=== PATIENT | female | born 1960 | race Caucasian/White ===

== ENCOUNTER 2018-12-22 17:45 | Emergency (ER) | payer OTHER ==
[~2018-12-22] VITALS: Ht 162.6 cm; Wt 70.3 kg
--- NOTE | 2018-12-22 17:50 | NUR ---
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 EDP NOTIFIED OF PT ARRIVAL.
[2018-12-22 18:08] VITALS: BP 134/90
[2018-12-22] MEDS ORDERED: TORADOL ONE (18:14)
[2018-12-22] MEDS ORDERED: TORADOL IM STA (18:15)
[2018-12-22] MEDS ORDERED: DUONEB 0.5 MG-3 MG/3 ML SOLN IH STA (18:15)
[2018-12-22] MEDS ORDERED: DECADRON IH STA (18:15)
--- NOTE | 2018-12-22 18:19 | ER.PDOC ---
General Chief Complaint: Flank Pain Stated Complaint: LEFT SIDE ABD PAIN Time seen by MD: 18:17 Source: patient Exam Limitations: no limitations History of Present Illness Initial Comments Left flank pain Timing/Duration: 4-6 hours Severity/Quality: moderate Radiation: no radiation Associated Symptoms: denies symptoms Exacerbated by: nothing Relieved By: nothing Allergies: Coded Allergies: hydrochlorothiazide (Verified Allergy, Unknown, Swelling, 12/22/18) SWELLING OF THROAT meperidine (Verified Allergy, Unknown, Swelling, 12/22/18) SWELLING OF THROAT moexipril (Verified Allergy, Unknown, Swelling, 12/22/18) SWELLING OF THROAT Vital Signs First Vital Signs Date Time Temp Pulse Resp B/P (MAP) Pulse Ox O2 Delivery O2 Flow Rate FiO2 12/22/18 18:05 97.8 92 21 89 Room Air 97.8 12/22/18 18:08 134/90 (105) Last Vital Signs Date Time Temp Pulse Resp B/P (MAP) Pulse Ox O2 Delivery O2 Flow Rate FiO2 12/22/18 18:08 97.8 92 21 134/90 (105) 89 Room Air 97.8 Past Medical History Medical History: COPD, hypertension Surgical History: knee Social History Smoking: greater than 1 pack/day Alcohol Use: none Drug Use: none Constitutional: no symptoms reported EENTM: no symptoms reported Respiratory: cough Cardiovascular: no symptoms reported Gastrointestinal: no symptoms reported Genitourinary: see HPI All Other Systems: Reviewed and Negative Physical Exam General Appearance: No Apparent Distress, WD/WN Neck: Non-Tender, Full Range of Motion, Supple, Normal Inspection Respiratory: chest non-tender, lungs clear, no respiratory distress, no accessory muscle use, decreased breath sounds Cardiovascular: Normal Peripheral Pulses, Regular Rate, Rhythm, No Edema, No Gallop, No JVD, No Murmur Gastrointestinal: Normal Bowel Sounds, No Organomegaly, No Pulsatile Mass, Tenderness (LLQ) Back: Normal Inspection, No CVA Tenderness, No Vertebral Tenderness Extremities: Normal Range of Motion, Non-Tender, Normal Inspection, No Pedal Edema, No Calf Tenderness, Normal Capillary Refill, Pelvis Stable 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 (12/22/18 18:15) Urinalysis (12/22/18 18:15) Ct Abd/Pelvis Wo Iv Contrast (12/22/18 18:15) Xr Chest 1v (12/22/18 18:15) Troponin I (12/22/18 18:15) Ekg-Routine (12/22/18 18:15) Ketorolac Tromethamine (Toradol) (12/22/18 18:15) Ipratropium/Albuterol Sulfate (Duoneb 0. (12/22/18 18:15) Dexamethasone Sod Phosphate (Decadron) (12/22/18 18:15) Vital Signs Date Time Temp Pulse Resp B/P (MAP) Pulse Ox O2 Delivery O2 Flow Rate FiO2 12/22/18 18:08 97.8 92 21 134/90 (105) 89 Room Air 97.8 12/22/18 18:05 97.8 92 21 97.8 12/22/18 18:05 97.8 92 21 89 Room Air 97.[address] Chest: . Consolidated right infrahilar density measuring 2.3 x 4.1 cm likely representing bronchogenic carcinoma or metastatic disease. The apparent mass encases the right bronchus intermedius. If diagnosis cannot be obtained via bronchoscopy, a PET/CT is suggested. 2. Patchy obstructive atelectasis or pneumonia noted in the right middle lobe and right lower lobe. Course Sepsis Screening Results: Posi: POSITIVE SEPSIS RISK Vitals & review Data Vital Sign - Last 24 Hours 12/22/18 12/22/18 12/22/18 18:05 18:05 18:08 Temp 97.8 97.8 97.8 97.8 97.8 97.8 Pulse 92 92 92 Resp 21 21 21 B/P (MAP) 134/90 (105) Pulse Ox 89 89 O2 Delivery Room Air Room Air Sepsis Infection Criteria Pres: None O2 Sat by Pulse Oximetry: 89 Departure Time of Disposition: 22:02 Disposition: 02 XFER SHT-TRM HOSP Impression: Primary Impression: Respiratory failure with hypoxia Additional Impressions: Mass of right lung Pneumonia Condition: Stable Referrals: WALTER CONCEPCION MD (PCP) PRIMARY CARE PROVIDER Comments Transfer to [facility] ED for Dr. Bui Duration or Time Spent with Pa: 2 hours Problem Qualifiers Primary Impression: Respiratory failure with hypoxia Chronicity: acute Qualified Codes: J96.01 - Acute respiratory failure with hypoxia Additional Impressions: Pneumonia Pneumonia type: due to unspecified organism Laterality: right Lung location : unspecified part of lung Qualified Codes: J18.9 - Pneumonia, unspecified organism CARIDAD,MICKEY Salvador MD Dec 22, 2018 18:19
--- NOTE | 2018-12-22 18:27 | PCM.EKG ---
[facility] Test Date: 2018-12-22 Test Time: 18:25:15 Pat Name: DA CORRAL Department: Patient ID: [facility]-[id number] Room: Gender: F Director Telemetry: : 1960 Requested By: MICKEY MCLEAN Order Number: [id number] Reading MD: Mickey MCLEAN Measurements Intervals [place] Rate: 93 P: 70 MD: 170 QRS: 59 QRSD: 94 T: 84 QT: 390 QTc: 484 Interpretive Statements Normal sinus rhythm Normal ECG No previous ECG available for comparison Electronically Signed On 12-23-2018 1:53:48 CDT by Mickey MCLEAN Please click the below link to view image of tracing.
[2018-12-22 18:28] LABS: BASOPHIL % 0.3 % (0.0-0.2); EOSINOPHIL # 0.2 10^3/uL (0.0-0.2); EOSINOPHIL % 1.4 % (0.0-5.0); HEMOGLOBIN 14.4 g/dL (12.0-15.0); LYMPHOCYTES # 1.1 10^3/uL (1.0-4.8); LYMPHOCYTES % 7.8 % (24.0-44.0); MEAN CELL HGB CONCENTRATION 33.3 g/dL (33-37); MEAN CORP VOLUME 81.1 fL (78-100); MONOCYTES # 0.6 10^3/uL (0.3-0.8); MONOCYTES % 4.5 % (5.0-12.0); NEUTROPHIL # 11.7 10^3/uL (1.8-7.7); NEUTROPHILS % 85.7 % (41.0-85.0); RED CELL DISTRIBUTION WIDTH 15.2 % (11.5-14.5); WHITE BLOOD CELL 13.6 10^3/uL (4.5-11.0)
--- NOTE | 2018-12-22 18:35 | NUR ---
RT RT AT BEDSIDE PLACED PATIENT ON O2 AT 2LPM PER NC FOR O2 SAT IN THE 80S.
[2018-12-22] MEDS ORDERED: DUONEB 0.5 MG-3 MG/3 ML SOLN IH ONE (18:37)
[2018-12-22] MEDS ORDERED: DECADRON ONE (18:37)
[2018-12-22 18:39] LABS: ABG PCO2 36.8 mmHg (35.0-45.0); ABG PH 7.494 (7.350-7.450); BE(B) 4.4 mmol/L (-2.0-2.0); HCO3act 27.7 mmol/L (22.0-26.0); pO2 44.3 mmHg (75.0-100.0)
[2018-12-22 18:50] LABS: ALANINE AMINOTRANSFERASE(ML) 14 U/L (12-78); ALKALINE PHOSPHATASE 92 U/L (50-136); ASPARTATE AMINO TRANSFERASE 14 U/L (0-35); CALCIUM 8.9 mg/dL (8.4-10.5); CARBON DIOXIDE 29.5 mmol/L (20.0-32); GLUCOSE 103 mg/dL (70-110)
[2018-12-22 19:14] VITALS: BP 126/75
[2018-12-22 19:21] LABS: BILIRUBIN,URINE NEGATIVE (NEGATIVE); UROBILINOGEN,URINE NORMAL (NEGATIVE)
[2018-12-22 19:22] LABS: APPEARANCE,URINE HAZY (CLEAR); UA COLOR YELLOW (YELLOW)
--- NOTE | 2018-12-22 19:45 | DIREP ---
PROCEDURE:CT ABD/PELVIS WITHOUT CONTRAST TECHNIQUE:No oral contrast was given. Axial cuts were obtained from the dome of the diaphragm to the ischial tuberosities. No intravenous contrast was given. The images were viewed at lung, liver, bone, and soft tissue settings. Sagittal and coronal reconstructions are provided. COMPARISON:None. INDICATIONS:Left flank pain FINDINGS: LOWER CHEST:Interstitial infiltrate is seen in the central aspects of the right middle lobe and basilar segments of the right lower lobe. Underlying solid mass is not excluded. LIVER:Normal. BILIARY:Normal. PANCREAS:Normal. SPLEEN:Normal. KIDNEYS:No evidence of urinary calculi. No evidence of obstructive uropathy. Renal morphology appears unremarkable. Simple right renal cyst present measuring 6.8 x 6.0 cm ADRENALS:Normal. AORTA/VASCULAR:Atheromatous calcifications of the aorta. Mild fusiform prominence of the infrarenal abdominal aorta measuring 2.4 cm. RETROPERITONEUM:Normal. BOWEL/MESENTERY:Bowel evaluation is limited by the lack of oral contrast. No evidence of bowel obstruction, free intraperitoneal air, or abscess. The appendix is not visualized; however, no adjacent inflammatory changes are present to suggest acute appendicitis. ABDOMINAL WALL:Normal. PELVIS:Normal. BONES:Normal OTHER: The absence of IV contrast limits evaluation of the soft tissues. CONCLUSION: No acute intra-abdominal process demonstrated. There is a mixed interstitial/airspace infiltrate in the right lung base. An underlying solid nodule is not excluded. Pneumonia versus developing neoplasm are both within the differential. Consider follow-up CT imaging of the chest with IV contrast for additional characterization Dictated by: Alanna Zendejas M.D. on 12/22/2018 at 07:40 PM
--- NOTE | 2018-12-22 19:56 | DIREP ---
PROCEDURE:CHEST 1 VIEW COMPARISON:None. INDICATIONS:hypoxia FINDINGS: LUNGS/PLEURA:There is a interstitial/airspace infiltrate in the right infrahilar region VASCULATURE:Normal. Unremarkable pulmonary vasculature. CARDIAC:Normal. No cardiac silhouette abnormality or cardiomegaly. MEDIASTINUM:Normal. No visible mass or adenopathy. BONES:Normal. No fracture or visible bony lesion. OTHER:Negative. CONCLUSION:Infiltrate in the right infrahilar region as above Dictated by: Alanna Zendejas M.D. on 12/22/2018 at 07:55 PM
[2018-12-22 19:58] VITALS: BP 126/78
--- NOTE | 2018-12-22 21:19 | DIREP ---
PROCEDURE:CT CHEST WITH CONTRAST TECHNIQUE:Following the intravenous administration of contrast material, axial cuts were obtained through the chest. The images were viewed at lung and soft tissue settings. Sagittal and coronal reconstructions are provided. COMPARISON:None. INDICATIONS:hypoxia and possible lung nodule on abdominal CT FINDINGS: LUNGS:A consolidated density is noted in the right infrahilar region measuring approximately 2.3 x 4.1 cm which is suspicious for bronchogenic carcinoma or metastatic disease although this could represent consolidated pneumonia. Streaky obstructive atelectasis or pneumonia is noted in the right middle lobe and right lower lobe. The probable mass encases the right bronchus intermedius; if diagnosis cannot be made via bronchoscopy, PET/CT is suggested. CARDIAC:Normal size heart and normal pulmonary vascularity. THORACIC AORTA:Mild atherosclerotic disease is demonstrated. MEDIASTINUM/ROSCOE:Normal. PLEURA:Normal. CHEST WALL:Normal. LIMITED ABDOMEN:Normal. BONES:There are mild degenerative changes of the thoracic spine. THYROID:Normal. OTHER:No additional findings. CONCLUSION: 1. Consolidated right infrahilar density measuring 2.3 x 4.1 cm likely representing bronchogenic carcinoma or metastatic disease. The apparent mass encases the right bronchus intermedius. If diagnosis cannot be obtained via bronchoscopy, a PET/CT is suggested. 2. Patchy obstructive atelectasis or pneumonia noted in the right middle lobe and right lower lobe. Dictated by: Mynor Orantes M.D. on 12/22/2018 at 09:11 PM
[2018-12-22 21:24] VITALS: BP 118/72
--- NOTE | 2018-12-22 21:50 | NUR ---
TRANSFER DR. MCLEAN ON THE PHONE ABOUT TRANSFER AT THIS TIME.
[2018-12-22] MEDS ORDERED: ZITHROMAX 500 MG in NS 250ML 250 ML IV STA (21:58)
[2018-12-22] MEDS ORDERED: ROCEPHIN 1,000 MG in NS 100ML 100 ML IV STA (21:58)
[2018-12-22] MEDS ORDERED: ROCEPHIN ONE (22:21)
[2018-12-22] MEDS ORDERED: NS 100ML 100 ML IV ONE (22:21)
[2018-12-22 22:25] VITALS: BP 146/89
[2018-12-22] MEDS ORDERED: NS 250ML 250 ML IV ONE (22:47)
--- NOTE | 2018-12-22 23:00 | NUR ---
[facility] ARRIVED TO TRANSFER TO [facility] ER. REPORT GIVEN RELINQUISHED CARE. ZITHROMAX 500MG INFUSING AT 175ML/HR IV. PATIENT DENIES ANY PAIN AT THIS TIME.
--- NOTE | 2018-12-23 00:15 | NUR ---
REPORT CALLED REPORT TO JOSE TOWNSEND AT [facility]
[2018-12-23 02:01] VITALS: BP 146/89
== END 2018-12-22 23:00 | disposition short-term general hospital (02) ==
LOC: ER 17:45
DX: J96.01 Acute respiratory failure with hypoxia (principal); J44.0 Chronic obstructive pulmonary disease with (acute) lower respiratory infection; Z88.5 Allergy status to narcotic agent; I10 Essential (primary) hypertension; J18.9 Pneumonia, unspecified organism; F17.210 Nicotine dependence, cigarettes, uncomplicated; Z88.8 Allergy status to other drugs, medicaments and biological substances
CPT/HCPCS: 36415; 36600; 71045; 71260; 74176; 80053; 81000; 82803; 84484; 85025; 85610; 85730; 87040 ×2; 87086; 93005; 94640; 96365; 96372; 96375; 99285; J0456; J0696; J1100; J1885; J7050 ×4; J7620; Q9965; 96368; 96376